=== PATIENT | female | born 1985 | race Caucasian/White ===

== ENCOUNTER 2016-12-22 18:52 | Emergency (ER) | payer BC, OTHER ==
--- NOTE | 2016-12-22 19:05 | ER Document Report ---
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 Called her fried who came over and tried to get her to slow down her breathing. At the point her hands cramped, he called ems. At this time during my calming the pt, pulse was 100, RR 30. Placed partial mask on her. . - Related Data Allergies/Adverse Reactions: No Known Allergies Allergy (Unverified 12/22/16 19:55) Past Medical History - General Information source: Patient - Social History Smoking Status: Never Smoker Frequency of alcohol use: None Drug Abuse: None Lives with: Alone Family History: Reviewed & Not Pertinent - Medical History Medical History: Negative Surgical Hx: Negative Physical Exam - Vital signs Vitals: Pulse Resp BP Pulse Ox 124 H 24 H 127/64 H 100 12/22/16 19:52 12/22/16 19:52 12/22/16 19:52 12/22/16 19:52 Interpretation: Tachycardic, Tachypneic - General General appearance: Alert, Anxious Notes: keeping eyes closed due to blurred vision - HEENT Head: Normocephalic, Atraumatic Eyes: Normal Pupils: PERRL Neck: Supple - Respiratory Respiratory status: No respiratory distress Chest status: Nontender Breath sounds: Normal Chest palpation: Normal - Cardiovascular Rhythm: Regular Heart sounds: Normal auscultation Murmur: No - Abdominal Inspection: Normal Distension: No distension Bowel sounds: Normal Tenderness: Nontender Organomegaly: No organomegaly - Back Back: Normal, Nontender - Extremities General upper extremity: Normal inspection, Nontender, Normal color, Normal ROM , Normal temperature General lower extremity: Normal inspection, Nontender, Normal color, Normal ROM , Normal temperature, Normal weight bearing. No: Jair's sign Wrist: Other - carpel spasms bilaterally - Neurological Neuro grossly intact: Yes Cognition: Normal Orientation: AAOx4 Earling Coma Scale Eye Opening: Spontaneous Al Coma Scale Verbal: Oriented Earling Coma Scale Motor: Obeys Commands Al Coma Scale Total: 15 Speech: Normal Motor strength normal: LUE, RUE, LLE, RLE Sensory: Normal - Psychological Associated symptoms: Normal affect, Normal mood - Skin Skin Temperature: Warm Skin Moisture: Dry Skin Color: Normal Course - Re-evaluation Re-evalutation: 12/22/16 20:16 She got up to bathroom. Ativan helpedFeels normal now, labs are normal. I explained what and why this happened to her. - Vital Signs Vital signs: Temp Pulse Resp BP Pulse Ox 97.8 F 52 L 12 101/51 L 100 12/22/16 21:08 12/22/16 21:08 12/22/16 21:08 12/22/16 21:08 12/22/16 21:08 - Laboratory Result Diagrams: 12/22/16 19:10 12/22/16 19:10 Laboratory results interpreted by me: 12/22/16 12/22/16 12/22/16 19:10 19:10 19:30 Seg Neutrophils % 29.8 L Lymphocytes % 60.1 H Chloride 110 H AST 37 H Ur Leukocyte Esterase TRACE H Discharge - Discharge Clinical Impression: Hyperventilation syndrome Condition: Good Disposition: HOME, SELF-CARE Instructions: Anxiety ([facility] [employer]), Hyperventilation ([facility]) Additional Instructions: see your doctor for possible treatment of underlying depression and anxiety to er if worse if you start to feel this way again, you can take benadryl 25mg which will calm you Please complete the patient satisfaction survey if you get one, and return it.. If you do not receive a survey, then you can go to the [facility] [employer] website, [email or web address] and place your comments about your very good care. Thank you very much. It was a pleasure being your medical provider today. Forms: Return to Work
[2016-12-22] MEDS ORDERED: LORAZEPAM INJ 2 MG/1 ML VIAL IV ONE (19:08)
[2016-12-22 19:40] LABS: APPEARANCE,URINE CLEAR; BILIRUBIN,URINE NEGATIVE (NEGATIVE); GLUCOSE, URINE NEGATIVE (NEGATIVE); KETONES,URINE NEGATIVE (NEGATIVE); LEUKOCYTE ESTERASE,URINE TRACE (NEGATIVE); NITRITE,URINE NEGATIVE (NEGATIVE); PROTEIN,URINE NEGATIVE (NEGATIVE); URINE SPECIFIC GRAVITY 1.006; UROBILINOGEN,URINE NEGATIVE mg/dL (<2.0)
[2016-12-22 19:42] LABS: ABSOLUTE LYMPHOCYTES (AUTO) 3.4 10^3/uL (0.5-4.7); ABSOLUTE MONOCYTES (AUTO) 0.5 10^3/uL (0.1-1.4); ABSOLUTE NEUT (AUTO) 1.7 10^3/uL (1.7-8.2); BASOPHILS % (AUTO) 0.7 % (0-2); EOSINOPHILS % (AUTO) 0.6 % (0-6); HEMATOCRIT 39.3 % (36.0-47.0); HEMOGLOBIN 13.6 g/dL (12.0-15.5); HGB HCT DIFFERENCE 1.5; LYMPHOCYTES % (AUTO) 60.1 % (13-45); MEAN CORPUSCULAR HEMOGLOBIN 31.1 pg (27.0-33.4); MEAN CORPUSCULAR HGB CONC 34.7 g/dL (32.0-36.0); MEAN CORPUSCULAR VOLUME 90 fl (80-97); MONOCYTES % (AUTO) 8.8 % (3-13); RED BLOOD COUNT 4.38 10^6/uL (3.72-5.28); RED CELL DISTRIBUTION WIDTH 13.7 % (11.5-14.0); SEGMENTED NEUTROPHILS % (AUTO) 29.8 % (42-78); WHITE BLOOD COUNT 5.6 10^3/uL (4.0-10.5)
[2016-12-22 19:49] LABS: ALANINE AMINOTRANSFERASE 34 U/L (9-52); ALBUMIN 4.3 g/dL (3.5-5.0); ALKALINE PHOSPHATASE 80 U/L (38-126); ANION GAP 11 (5-19); ASPARTATE AMINO TRANSFERASE 37 U/L (14-36); BILIRUBIN,DIRECT 0.3 mg/dL (0.0-0.4); BILIRUBIN,TOTAL 0.5 mg/dL (0.2-1.3); BLOOD UREA NITROGEN 12 mg/dL (7-20); CALCIUM 9.9 mg/dL (8.4-10.2); CARBON DIOXIDE 22 mmol/L (22-30); CHLORIDE 110 mmol/L (98-107); GLUCOSE 110 mg/dL (75-110); POTASSIUM 3.6 mmol/L (3.6-5.0); SODIUM 143.2 mmol/L (137-145); TOTAL PROTEIN 7.1 g/dL (6.3-8.2)
[2016-12-22 20:07] LABS: WBC,URINE RARE /HPF
[2016-12-22 20:08] LABS: BACTERIA,URINE TRACE /HPF
[2016-12-22 21:27] VITALS: BP 101/51
== END 2016-12-22 21:08 | disposition home or self-care (01) ==
LOC: ER 18:52
DX: R06.4 Hyperventilation (principal); F41.9 Anxiety disorder, unspecified; H53.8 Other visual disturbances
CPT/HCPCS: 99285; 96374; 36415; 83735; 84703; 85025; 80053; 81001; J2060

== ENCOUNTER 2016-12-24 08:34 | Emergency (ER) | payer BC, OTHER ==
[2016-12-24 09:59] LABS: ABSOLUTE LYMPHOCYTES (AUTO) 2.2 10^3/uL (0.5-4.7); ABSOLUTE MONOCYTES (AUTO) 0.3 10^3/uL (0.1-1.4); ABSOLUTE NEUT (AUTO) 1.7 10^3/uL (1.7-8.2); BASOPHILS % (AUTO) 0.6 % (0-2); EOSINOPHILS % (AUTO) 0.7 % (0-6); HEMATOCRIT 38.7 % (36.0-47.0); HEMOGLOBIN 13.4 g/dL (12.0-15.5); HGB HCT DIFFERENCE 1.5; LYMPHOCYTES % (AUTO) 51.3 % (13-45); MEAN CORPUSCULAR HEMOGLOBIN 31.2 pg (27.0-33.4); MEAN CORPUSCULAR HGB CONC 34.6 g/dL (32.0-36.0); MEAN CORPUSCULAR VOLUME 90 fl (80-97); MONOCYTES % (AUTO) 7.6 % (3-13); RED CELL DISTRIBUTION WIDTH 13.5 % (11.5-14.0); SEGMENTED NEUTROPHILS % (AUTO) 39.8 % (42-78); WHITE BLOOD COUNT 4.3 10^3/uL (4.0-10.5)
[2016-12-24 10:28] LABS: ALANINE AMINOTRANSFERASE 36 U/L (9-52); ALBUMIN 4.1 g/dL (3.5-5.0); ALKALINE PHOSPHATASE 67 U/L (38-126); ANION GAP 10 (5-19); ASPARTATE AMINO TRANSFERASE 33 U/L (14-36); BILIRUBIN,DIRECT 0.4 mg/dL (0.0-0.4); BILIRUBIN,TOTAL 0.7 mg/dL (0.2-1.3); BLOOD UREA NITROGEN 12 mg/dL (7-20); CALCIUM 10.2 mg/dL (8.4-10.2); CARBON DIOXIDE 23 mmol/L (22-30); CHLORIDE 111 mmol/L (98-107); CREATININE RESULT 0.68 mg/dL (0.52-1.25); GLUCOSE 94 mg/dL (75-110); SODIUM 144.3 mmol/L (137-145); TOTAL PROTEIN 6.6 g/dL (6.3-8.2)
[2016-12-24 10:39] LABS: APPEARANCE,URINE CLEAR; BILIRUBIN,URINE NEGATIVE (NEGATIVE); GLUCOSE, URINE NEGATIVE (NEGATIVE); KETONES,URINE NEGATIVE (NEGATIVE); LEUKOCYTE ESTERASE,URINE NEGATIVE (NEGATIVE); NITRITE,URINE NEGATIVE (NEGATIVE); PROTEIN,URINE NEGATIVE (NEGATIVE); URINE SPECIFIC GRAVITY 1.006; UROBILINOGEN,URINE NEGATIVE mg/dL (<2.0)
[2016-12-24 10:54] LABS: URINE BARBITURATES SCREEN NEGATIVE; URINE METHADONE SCREEN NEGATIVE; URINE OPIATES LOW NEGATIVE; URINE PHENCYCLIDINE SCREEN NEGATIVE
[2016-12-24 10:59] LABS: THYROID STIMULATING HORMONE 1.25 uIU/mL (0.47-4.68)
--- NOTE | 2016-12-24 11:44 | ER Document Report ---
ED General - General Chief Complaint: Anxiety Stated Complaint: DIFFICULTY BREATHING Time Seen by Provider: 12/24/16 09:23 TRAVEL OUTSIDE OF THE [place] IN LAST 30 DAYS: No - HPI Patient complains to provider of: Difficulty breathing Notes: Patient coming in for evaluation of difficulty breathing. Patient also complains of funny feeling in her head bilateral arm numbness and bilateral hand spasms. Patient upon triage was found to be hyperventilating. Patient was seen a few days earlier for similar symptoms. Patient denies any fevers chills nausea vomiting upon my evaluation is patient respiratory rate has improved to normal. Patient still complains of spasms in her hands and arm numbness. Patient states shortness of breath started first of the symptoms involved. Patient denies a history of anxiety in the past. Patient is on Adderall currently for ADHD. Denies any recent changes in her Adderall dosing. Denies any illicit drug use alcohol use or smoking. Patient is resting comfortably upon my evaluation - Related Data Allergies/Adverse Reactions: No Known Allergies Allergy (Verified 12/24/16 08:38) Home Medications: Current Home Medications Dextroamphetamine/Amphetamine [Adderall Xr 30 mg Capsule] 30 mg PO QAM 12/24/16 [History] Past Medical History - Social History Smoking Status: Never Smoker Chew tobacco use (# tins/day): No Frequency of alcohol use: None Drug Abuse: None Family History: Reviewed & Not Pertinent Patient has suicidal ideation: No Patient has homicidal ideation: No Renal/ Medical History: Denies: Hx Peritoneal Dialysis Psychiatric Medical History: Reports: Hx Attention Deficit Hyperactivity Disorder Past Surgical History: Reports: Hx Breast Surgery - Breast augmentation Review of Systems - Review of Systems Constitutional: Other - Numbness tingling cramping bilateral hands and arms EENT: No symptoms reported Cardiovascular: No symptoms reported Respiratory: No symptoms reported Gastrointestinal: No symptoms reported Genitourinary: No symptoms reported Female Genitourinary: No symptoms reported Musculoskeletal: No symptoms reported Skin: No symptoms reported Hematologic/Lymphatic: No symptoms reported Neurological/Psychological: No symptoms reported Physical Exam - Vital signs Vitals: Temp Pulse Resp BP Pulse Ox 97.4 F 116 H 24 H 137/51 H 100 12/24/16 08:38 12/24/16 08:38 12/24/16 08:38 12/24/16 08:38 12/24/16 08:38 Interpretation: Normal - General General appearance: Appears well, Alert - HEENT Head: Normocephalic, Atraumatic Eyes: Normal Pupils: PERRL - Respiratory Respiratory status: No respiratory distress Chest status: Nontender Breath sounds: Normal Chest palpation: Normal - Cardiovascular Rhythm: Regular Heart sounds: Normal auscultation Murmur: No - Abdominal Inspection: Normal Distension: No distension Bowel sounds: Normal Tenderness: Nontender Organomegaly: No organomegaly - Back Back: Normal, Nontender - Extremities General upper extremity: Nontender, Normal color, Normal ROM, Normal temperature. No: Normal inspection - Bilateral carpopedal spasms General lower extremity: Normal inspection, Nontender, Normal color, Normal ROM , Normal temperature, Normal weight bearing. No: Jair's sign - Neurological Neuro grossly intact: Yes Cognition: Normal Orientation: AAOx4 Al Coma Scale Eye Opening: Spontaneous [place] Coma Scale Verbal: Oriented Al Coma Scale Motor: Obeys Commands Al Coma Scale Total: 15 Speech: Normal Motor strength normal: LUE, RUE, LLE, RLE Sensory: Normal - Psychological Associated symptoms: Normal affect, Normal mood - Skin Skin Temperature: Warm Skin Moisture: Dry Skin Color: Normal Course - Re-evaluation Re-evalutation: 12/24/16 14:30 Upon reevaluation spaces has been normal no further signs of any spasming. Patient states feeling better. Lab work does not show any acute pathology. Wells criteria is 0. EKG is normal. More likely patient has underlying anxiety or possibly had a panic attack. Explained to the patient that this will need further evaluation recommended follow-up with his local psychiatric care will start patient on Vistaril at nighttime. Patient otherwise will be discharged - Vital Signs Vital signs: Temp Pulse Resp BP Pulse Ox 98.2 F 54 L 16 107/75 100 12/24/16 12:11 12/24/16 12:11 12/24/16 12:11 12/24/16 12:11 12/24/16 12:11 - Laboratory Result Diagrams: 12/24/16 09:45 12/24/16 09:45 Laboratory results interpreted by me: 12/24/16 12/24/16 09:45 09:45 Seg Neutrophils % 39.8 L Lymphocytes % 51.3 H Chloride 111 H Discharge - Discharge Clinical Impression: Dyspnea Qualifiers: Dyspnea type: unspecified Qualified Code(s): R06.00 - Dyspnea, unspecified Condition: Good Disposition: HOME, SELF-CARE Instructions: Anxiety ([facility]) Additional Instructions: Your lab work today does not show any acute or critical findings. Your story is concerning for possible anxiety attack. It was noted upon triage that you did have an increased respiratory rate which can cause headaches or "fogginess" numbness and tingling in the arms and legs and spasms of the hands. At this time your laboratory studies and physical examination did not reveal anything critical I would highly recommend following up with your primary care physician or physicians provided. Return to the ER if symptoms worsen. She may try taking the Vistaril prescribed please be aware that this will make you sleepy please take at nighttime please make sure that you have at least 8 hour time period where she can rest Prescriptions: Hydroxyzine Pamoate [Vistaril 25 mg Capsule] 25 mg PO QHS #14 capsule Forms: Return to Work Referrals: OLGA LUU JR, MD [Primary Care Provider] - Follow up as needed STEPHY WATTERS PSYD [[employer] PROFESSIONAL] - Follow up as needed SHEKHAR BAI MD [NO LOCAL MD] - Follow up as needed
[2016-12-24 12:12] VITALS: BP 107/75
--- NOTE | 2016-12-24 18:18 | EKG REPORT ---
SEVERITY:- BORDERLINE ECG - SINUS RHYTHM BORDERLINE PROLONGED QT INTERVAL : Confirmed by: Ade Smith MD 24-Dec-2016 18:17:47
== END 2016-12-24 12:11 | disposition home or self-care (01) ==
LOC: ER 08:34
DX: R06.4 Hyperventilation (principal); R20.0 Anesthesia of skin; R20.2 Paresthesia of skin; R25.2 Cramp and spasm; F90.9 Attention-deficit hyperactivity disorder, unspecified type; Z79.899 Other long term (current) drug therapy
CPT/HCPCS: 36415; 80053; 80307; 81001; 84439; 84443; 85025; 93005; 93010; 99284